=== PATIENT | female | born 1935 | race Caucasian/White ===

== ENCOUNTER 2019-08-14 11:33 | Inpatient (IN) | payer MEDICARE ==
[~2019-08-14] VITALS: Ht 157.5 cm; Wt 69.1 kg
[2019-08-14] MEDS ORDERED: SODIUM CHLORIDE 0.9% 1,000 ML IVB ONE (11:54)
[2019-08-14 12:43] LABS: Basophils # (auto) 0 uL; Basophils % (auto) 0.2 % (0.0-2.0); Eosinophils # (auto) 0 uL; Eosinophils % (auto) 0.4 % (0.0-7.0); Hematocrit 42.4 % (36.0-46.0); Hemoglobin 14.6 g/dL (12.2-16.2); Lymphocytes # (auto) 0.4 uL; Mean Corpuscular Hemoglobin 30.3 pg (28.0-32.0); Mean Corpuscular Hgb Conc. 34.5 g/dL (32.0-36.0); Mean Corpuscular Volume 87.8 fL (80.0-100.0); Monocytes # (auto) 0.3 uL; Monocytes % (auto) 3.4 % (0.0-12.0); Neutrophils # (auto) 8.3 uL; Nucleated Red Blood Cells % 0.1 %; Platelet Count (auto) 263 10^3/uL (140-450); Red Blood Cells 4.83 10^6/uL (4.0-5.20); Red Cell Distribution Width 14.3 % (11.8-14.3)
[2019-08-14 12:44] LABS: Urine Bacteria NONE SEEN /hpf (None Seen); Urine Blood Negative /uL (Negative); Urine Hyaline Cast MANY /lpf (0 - 2); Urine Mucus FEW (None Seen); Urine WBC 14 /hpf (0 - 5)
[2019-08-14 12:57] LABS: Albumin 3.8 g/dL (3.4-5.0); Calcium 8.7 mg/dL (8.5-10.1); Potassium 3.7 mmol/L (3.5-5.1)
[2019-08-14 13:00] LABS: BUN/Creatinine Ratio 10.3; Bilirubin, Total 2.4 mg/dL (0.2-1.0)
[2019-08-14] MEDS ORDERED: cefTRIAXone 1GM/50ML D5W 50 ML IV ONE (13:00)
[2019-08-14] MEDS ORDERED: NITROGLYCERIN 0.4 MG SL TAB SL PRN (14:00)
[2019-08-14] MEDS ORDERED: MORPHINE SULF INJ 2 MG/ML SYRINGE 1ML IV PRN (14:00)
[2019-08-14] MEDS ORDERED: ONDANSETRON HCL 4 MG/2 ML VIAL IV PRN (14:00)
[2019-08-14] MEDS ORDERED: DOCUSATE SOD 100 MG CAP PO PRN (14:00)
[2019-08-14] MEDS ORDERED: HYDROcodone-ACET 5/325MG TAB PO PRN (14:00)
[2019-08-14] MEDS ORDERED: ACETAMINOPHEN 500 MG TAB PO PRN (14:00)
[2019-08-14] MEDS: MORPHINE SULF INJ 2 MG/ML SYRINGE 1ML IV PRN ×2 (14:25→21:48)
[2019-08-14 14:27] LABS: Magnesium 2.1 mg/dL (1.6-2.6)
[2019-08-14 15:52] LABS: INR 1.03 (0.9-1.15); Partial Thromboplastin Time 27.1 sec (23.64-32.05)
--- NOTE | 2019-08-14 15:55 | NUR ---
Telemetry admit from ER TRICIADAVID admitted to Telemetry unit after SBAR received. Patient oriented to Arianna Mobley, RN primary RN, unit, room, bed, and unit policies regarding patient care and visiting hours. Patient now on continuous telemetry monitoring, tele box # 11 and telemetry reading on arrival to unit is NSR. Patient placed on bedside oxygen, weighed by bed scale and encouraged to call if they need something. All questions and concerns addressed, patient verbalized understanding.
[2019-08-14 16:21] VITALS: BP 95/79
--- NOTE | 2019-08-14 19:25 | NUR ---
Endorsed care to NOC RN.
--- NOTE | 2019-08-14 19:30 | NUR ---
Opening Shift Note Assumed care of patient, awake and alert oriented x3, very forgetful easily reoriented. No S/S of distress/SOB noted, pain to right leg to medicate with prn pain medication. Bed is in lowest locked position with bed rails up x2 and call light is within reach of the patient. Instructed on POC and to call for assist PRN. Addendum: 08/14/19 at 7104 by Kym Conner RN RN Bed alarm is on.
[2019-08-14 22:00] VITALS: BP 138/81
--- NOTE | 2019-08-15 00:15 | NUR ---
BUCKS TRACTION: Asked around in search of equipment for bucks traction that is ordered for the patient. None found on unit. Asked charge nurse regarding bucks tractions. Charge nurse to call ER to seek equipment, then powerhouse helper if not available. Waiting for call back.
[2019-08-15] MEDS: MORPHINE SULF INJ 2 MG/ML SYRINGE 1ML IV PRN ×2 (01:53→05:55)
--- NOTE | 2019-08-15 02:27 | NUR ---
Mccurtain traction set up: Mccurtain traction set up for the patient right leg, storage facility housekeeper in with equipment and set up for the patient. Leg stabilized.
[2019-08-15 04:22] VITALS: BP 102/68
--- NOTE | 2019-08-15 05:48 | NUR ---
CHG BATH PERFORMED: CHG BATH PERFORMED. PATIENT TOLERATED WELL. PATIENT CLEANED AND PLACED IN NEW GOWN AND SHEETS. RESTING IN BED WITH BREATHS EVEN AND UNLABORED BED ALARM ARMED.
--- NOTE | 2019-08-15 06:31 | NUR ---
Called Family member Chino regarding consent forms: Called Patients family member Chino, after receiving password for the patient and explained about needing consent forms signed for surgery and need to speak to surgeon regarding consent forms. Chino stated "Ill be there as soon as I can."
--- NOTE | 2019-08-15 06:34 | NUR ---
PACU CALLED REGARDING CARDIAC CLEARANCE: PACU wanted to know if patient is cleared for surgery from cardio. Explained that she is still waiting to be cleared from cardiology before she is able to have surgery. She has yet to be seen by a middle school reading teacher. To make sure cardiology is called in stat.
--- NOTE | 2019-08-15 06:36 | NUR ---
Called in Cardiology consult for stat and made them aware we need it cleared before 9 for surgery.
--- NOTE | 2019-08-15 06:39 | NUR ---
Unable to obtain medication reconciliation. Patient is confused. Patients family members to come in in the AM.
[2019-08-15 06:47] LABS: Basophils # (auto) 0 uL; Basophils % (auto) 0.2 % (0.0-2.0); Eosinophils # (auto) 0 uL; Eosinophils % (auto) 0.3 % (0.0-7.0); Hematocrit 34.1 % (36.0-46.0); Hemoglobin 12.2 g/dL (12.2-16.2); Lymphocytes # (auto) 0.4 uL; Lymphocytes % (auto) 6.2 % (10.0-50.0); Mean Corpuscular Hemoglobin 31.2 pg (28.0-32.0); Mean Corpuscular Hgb Conc. 35.9 g/dL (32.0-36.0); Mean Corpuscular Volume 86.8 fL (80.0-100.0); Monocytes # (auto) 0.5 uL; Monocytes % (auto) 6.4 % (0.0-12.0); Neutrophils # (auto) 6.2 uL; Neutrophils % (auto) 86.9 % (37.0-80.0); Nucleated Red Blood Cells % 0.1 %; Platelet Count (auto) 234 10^3/uL (140-450); Red Blood Cells 3.93 10^6/uL (4.0-5.20); White Blood Cell 7.2 10^3/uL (4.4-10.8)
[2019-08-15 06:48] LABS: Potassium 3.6 mmol/L (3.5-5.1)
[2019-08-15 06:57] LABS: BUN/Creatinine Ratio 11.1; Calcium 8.1 mg/dL (8.5-10.1)
--- NOTE | 2019-08-15 07:00 | NUR ---
Opening Shift Note Received report on the patient. Awake and lying in bed. Patient shows no signs of distress at this time. Discussed plan of care with the patient. Bed in lowest position, side rails up x2, and call light is within reach. Will continue to monitor.
--- NOTE | 2019-08-15 08:37 | NUR ---
Called Dr. Macdonald for a cardio clearance before surgery.
[2019-08-15] MEDS ORDERED: ceFAZolin 1GM/50ML 50 ML IV ONE (08:45)
[2019-08-15 09:07] VITALS: BP 126/56
[2019-08-15] MEDS: FAMOTIDINE 20 MG TAB PO SCH (10:00)
--- NOTE | 2019-08-15 10:56 | NUR ---
OR Patient taken down to OR. No signs of distress at this time
--- NOTE | 2019-08-15 10:57 | NUR ---
Jewelry/Belongings Patients jewelry was given to the before surgery.
[2019-08-15 13:00] VITALS: BP 118/49
[2019-08-15] MEDS ORDERED: PHENYLEPHRINE HCL 10 MG/ML VL IV ONE (13:15)
[2019-08-15] MEDS ORDERED: TETRACAINE 1% INJ 2 ML VIAL IJ ONE (13:16)
[2019-08-15] MEDS ORDERED: MIDAZOLAM HCL 1MG/1ML-2 ML VIAL ONE ×2 (13:24→13:31)
[2019-08-15] MEDS ORDERED: fentaNYL CITRATE 100 MCG/2 ML VL ONE (13:24)
[2019-08-15] MEDS ORDERED: DexAMETHasone SOD PHOS 10MG/1ML VIAL INJ ONE (13:31)
[2019-08-15] MEDS ORDERED: PROPOFOL 10 MG/ML 20 ML IV ONE (13:31)
[2019-08-15] MEDS ORDERED: HYDROmorphone HCL 2 MG/ML VL IV PRN (14:15)
[2019-08-15] MEDS ORDERED: ONDANSETRON HCL 4 MG/2 ML VIAL IV PRN (14:15)
[2019-08-15] MEDS ORDERED: MIDAZOLAM HCL 1MG/1ML-2 ML VIAL IV PRN (14:15)
[2019-08-15] MEDS ORDERED: LABETALOL HCL 5 MG/ML 4ML SYRINGE IV PRN (14:15)
[2019-08-15] MEDS ORDERED: MORPHINE SULFATE 4 MG/ML SYR/VIAL IV PRN (14:15)
[2019-08-15] MEDS ORDERED: ePHEDrine SULFATE 50 MG/ML AMP IV PRN (14:15)
[2019-08-15] MEDS ORDERED: DOCUSATE SOD 100 MG CAP PO PRN (15:00)
[2019-08-15] MEDS ORDERED: HYDROcodone-ACET 5/325MG TAB PO PRN (15:00)
[2019-08-15] MEDS ORDERED: ACETAMINOPHEN 325 MG TAB PO PRN (15:00)
[2019-08-15 16:50] VITALS: BP 121/50
--- NOTE | 2019-08-15 19:40 | NUR ---
Opening Shift Note Assumed care of patient, awake and alert. Patient very forgetful, easily reoriented. No S/S of distress/SOB noted. Bed is in lowest locked position with bed rails up x2 and call light is within reach of the patient bed alarm armed. Nasal cannula applied at 2 liters, continuous pulse ox on. Dressing to right hip is dry and intact. Instructed on POC and to call for assist PRN.
--- NOTE | 2019-08-15 21:00 | NUR ---
Respiratory note: PT PLACED ON CONT. POX AT THIS TIME ORDERED. SPO2 97% ON 1L NC, HR 99, RR 16.
[2019-08-15] MEDS: HYDROmorphone HCL 2 MG/ML VL IV PRN (21:17)
[2019-08-15] MEDS: ceFAZolin 1GM/50ML 50 ML IV SCH (21:20)
[2019-08-15 22:00] VITALS: BP 159/74
--- NOTE | 2019-08-16 00:15 | NUR ---
Patient very confused, ripped out IV: Patient forgot where she was, why she was here. Only alert oriented to self. Did extensive reorienting on patient. Patient verbalized understanding but very repetitive with questions. IV found on the floor pulled out by patient. Assessed site, dry and intact, secured with gauze and coband. Educated and instructed patient not to pull out iv catheter for the use of medications. Patient verbalized understanding. New IV obtained on left wrist 20 Gauge. Patient tolerated well.
[2019-08-16] MEDS: HYDROmorphone HCL 2 MG/ML VL IV PRN ×4 (00:27→21:33)
[2019-08-16 05:00] VITALS: BP 162/65
[2019-08-16] MEDS: ceFAZolin 1GM/50ML 50 ML IV SCH ×2 (06:24→13:49)
[2019-08-16 06:30] VITALS: BP 132/87
--- NOTE | 2019-08-16 06:30 | NUR ---
Blood pressure reassessed: Blood pressure reassessed due to ZIPPER MEASURER vitals being elevated. Blood pressure is 132/87 and pulse is 78 at this time.
--- NOTE | 2019-08-16 06:52 | NUR ---
Closing note and Dressing: Patients dressing to right hip is clean dry and intact. Has not hit 24 hour alfredito for dressing change post surgery. Will endorse dressing change to next nurse. Patient resting in bed with breaths even and unlabored. No s/s of distress SOB or pain noted. On continuous pulse ox and reoriented to time place and situation. Will endorse care to day shift nurse. Addendum: 08/16/19 at 0723 by Kym Conner RN RN INCENTIVE SPIROMETRY AT THE BEDSIDE. EDUCATED PATIENT ABOUT ITS USES TO PREVENT FLUID BUILD UP IN LUNGS. PATIENT VERBALIZED UNDERSTANDING AND DEMONSTRATED USE OF IS.
--- NOTE | 2019-08-16 07:10 | NUR ---
Respiratory note: ROUTINE POX CHECK DONE. HR 68, RR 18, POX 100% ON RA. NO SOB OR DISTRESS NOTED.
--- NOTE | 2019-08-16 08:00 | NUR ---
ASSESSMENT NOTE PATIENT IS RESTING IN BED IN LOW [place] POSITION, ALERT TO SELF, SITUATIONS, CONFUSED ON TIME AND PLACE, VERNON CATHETER TO GRAVITY, RT HIP DRESSING IS DRY AND CLEAN, REPOSITION FROM SIDE TO SIDE WITH PILLOWS, REORIENTED AT ALL TIMES, EDUCATION OF HOW TO USE THE CALL LIGHT GIVEN TO PT, PLACED WITHIN REACH
[2019-08-16] MEDS: FAMOTIDINE 20 MG TAB PO SCH (08:59)
[2019-08-16] MEDS: ENOXAPARIN SOD 40 MG/0.4 ML SYRINGE SC SCH (09:00)
--- NOTE | 2019-08-16 09:00 | NUR ---
PT IS VERY FORGETFUL, REMINDED AT ALL TIMES THAT SHE AT THE HOSPITAL, AND WHY, PT VERBALIS UNDERSTANDING
--- NOTE | 2019-08-16 11:00 | NUR ---
DR GUERRERO AT BED SIDE FOLLOWING UP ON PT, WITH NEW ORDERS
[2019-08-16 11:15] LABS: Basophils # (auto) 0 uL; Basophils % (auto) 0.1 % (0.0-2.0); Eosinophils # (auto) 0 uL; Hematocrit 27.2 % (36.0-46.0); Hemoglobin 9.9 g/dL (12.2-16.2); Lymphocytes # (auto) 0.3 uL; Lymphocytes % (auto) 3.9 % (10.0-50.0); Mean Corpuscular Hemoglobin 31.4 pg (28.0-32.0); Mean Corpuscular Hgb Conc. 36.3 g/dL (32.0-36.0); Mean Corpuscular Volume 86.6 fL (80.0-100.0); Monocytes # (auto) 0.6 uL; Monocytes % (auto) 7.4 % (0.0-12.0); Neutrophils # (auto) 7.7 uL; Neutrophils % (auto) 88.6 % (37.0-80.0); Platelet Count (auto) 211 10^3/uL (140-450); Red Blood Cells 3.14 10^6/uL (4.0-5.20); Red Cell Distribution Width 13.6 % (11.8-14.3); White Blood Cell 8.7 10^3/uL (4.4-10.8)
--- NOTE | 2019-08-16 12:15 | NUR ---
FAMILY PATENT'S SON AND DAUGHTER IN LOW AT BED SIDE
[2019-08-16 13:00] VITALS: BP 119/51
--- NOTE | 2019-08-16 15:14 | NUR ---
DRESSING CHANGE ON THE RT HIP OLD DRESSING REMOVED NO SIGNS OF INFECTION NOTED, STABLES, ARE INTACT, PT TOLERATED WELL
[2019-08-16 17:00] VITALS: BP 123/60
--- NOTE | 2019-08-16 17:06 | NUR ---
PATIENT PULLED OUT THE VERNON CATHETER, NO ACTIVE BLEEDING AT THE URETHRA AREA, PULLED OUT THE TELE BOX, STATED < I WANT TO GO TO BATHROOM>, CONTINUE REORIENTING PT AT ALL TIMES
--- NOTE | 2019-08-16 17:15 | NUR ---
CHIR CHARGE NURSE MADE AWARE PT IS VERY FORGETFULL MAY NEED SITTER, MADE AWARE ABOUT THE VERNON IF WE HAVE TO PUT IT BACK IN , MADE AWARE THAT USUALLY DR GARDNER LIKE THE VERNON BE OUT THE NEXT DAY OF POST OP, VERNON CATHETER WILL STAY OUT
--- NOTE | 2019-08-16 18:31 | NUR ---
PT CONTINUE STABLE, CONTINUE MONITORING
--- NOTE | 2019-08-16 19:20 | NUR ---
Opening Shift Note Assumed care of patient, awake and alert. Patient is orientated x1. No S/S of distress/SOB or pain. Instructed on POC and to call for assist PRN, will continue to monitor for changes Q1hr and PRN.
--- NOTE | 2019-08-16 21:45 | NUR ---
IV insertion IV access obtained, via clean sterile technique by inserting 24 gauge catheter at Left forearm after 1 attempt. IV secured properly. No trauma to site. Patient tolerated well.
[2019-08-16 22:00] VITALS: BP 108/60
--- NOTE | 2019-08-17 00:20 | NUR ---
PT SEEN RESTING IN BED. PT PULLED OFF CONT POX EARLIER. PT PLACED BACK ON CONT POX. PT SPO2 97% ON RA.
[2019-08-17] MEDS: HYDROmorphone HCL 2 MG/ML VL IV PRN ×3 (01:11→21:13)
[2019-08-17 05:00] VITALS: BP 112/77
--- NOTE | 2019-08-17 06:30 | NUR ---
RT NOTE: WENT TO PTS ROOM TO CHECK ON CONT BEDSIDE PULSE OX. PT IS ON 3L NC, SPO2 99%, HR 95, RR 16, WILL CONTINUE TO MONITOR PT.
--- NOTE | 2019-08-17 07:45 | NUR ---
OPENING SHIFT NOTE: Received report from NOC RN, Blel. Assumed care of patient. Patient remains confused to place and situation. Patient denies pain. Bed in lowest position, rails x2 up and call light within reach. Patient with mittens in place due to previously pulling out harris and IV. Updated on plan of care. Will continue to monitor.
[2019-08-17 09:00] VITALS: BP 107/51
--- NOTE | 2019-08-17 09:10 | NUR ---
MD: Dr Danita Trevizo at bedside to see patient. Plan to discharge to SNF tomorrow if ok with Dr Love. Social service consult pending for discharge planning.
[2019-08-17 09:34] LABS: Hematocrit 25.5 % (36.0-46.0); Hemoglobin 9.3 g/dL (12.2-16.2)
[2019-08-17] MEDS: FAMOTIDINE 20 MG TAB PO SCH (10:46)
[2019-08-17] MEDS: ENOXAPARIN SOD 40 MG/0.4 ML SYRINGE SC SCH (10:47)
--- NOTE | 2019-08-17 11:00 | NUR ---
: Dr Love at bedside to see patient. states patient ok from his viewpoint to discharge tomorrow to SNF. is concerned about placement since patient is from [place], [place].
--- NOTE | 2019-08-17 11:55 | NUR ---
Nutrition Assessment Notes please see attached link for complete assessment Est. Needs BW 67 [id number] kcal (23-25 kcal/kgBW), 67-73 gms pro (1.0-1.1 gms/kgBW). Will continue to monitor pertinent labs and reassess nutrient need prn Addendum: 08/17/19 at [address] Amended: Links added.
[2019-08-17 13:00] VITALS: BP 96/64
[2019-08-17 17:00] VITALS: BP 106/53
--- NOTE | 2019-08-17 17:20 | NUR ---
Patient yelling out in room. Found patient lying in bed, linens, thrown off, mittens off, harris catheter wrapped around right arm. Patient yelling at reflection in window, asking if patient is real and that she doesn't feel real. Patient hitting and pinching self saying she doesn't feel real and hitting nurse stating that nurse is real. Notified Ellie, head charger. Patient to be transferred to sitter room 291B.
--- NOTE | 2019-08-17 18:30 | NUR ---
REPORT: Report given to JAMEL Aguero. Endorsed care of patient. Patient transferred to [facility] via bed.
--- NOTE | 2019-08-17 18:35 | NUR ---
Received patient to room 291B. Patient is awake, able to make needs known. Patient has no complaints at this time. Sitter at bedside. Will report to NOC shift.
[2019-08-17 22:00] VITALS: BP 117/57
[2019-08-18 05:00] VITALS: BP 122/54
[2019-08-18 09:00] VITALS: BP 95/43
[2019-08-18 09:30] LABS: Hematocrit 24.7 % (36.0-46.0)
[2019-08-18] MEDS: FAMOTIDINE 20 MG TAB PO SCH (09:58)
[2019-08-18] MEDS: ENOXAPARIN SOD 40 MG/0.4 ML SYRINGE SC SCH (09:58)
--- NOTE | 2019-08-18 09:58 | NUR ---
REPORT FROM JUAN F INITIAL ASSESSMENT. PATIENT IN BED, RESTING, ALERT, ORIENTED X1. COOPERATIVE. PATIENT IS STABLE, UNLABORED BREATHING, DENIES PAIN OR DISCOMFORT. INCISION ON RIGHT HIP COVERED WITH DRESSING, DRY AND INTACT. Addendum: 08/18/19 at 1009 by LEEANNE KING RN REPORT TAKEN AT 0700
--- NOTE | 2019-08-18 10:07 | NUR ---
MEDICATIONS PATIENT WAS OK TAKING PILLS, ABLE TO UNDERSTAND THE PURPOSE OF LOVENOX.
[2019-08-18 13:00] VITALS: BP 119/72
--- NOTE | 2019-08-18 15:43 | NUR ---
DRESSING CHANGED DRESSING CHANGE TO RIGHT HIP. PATIENT HAS ONE LONGER INCISION IN THE TOP OF THE HIP, RIGHT BELOW SHE HAS TWO VERY SMALL ONES. ALL CLEAN AND DRY, NO DRAINAGE, NO ODOR. SKIN IS WARM TO TOUCH, NO SIGNS OF INFECTION. DR GARDNER CAME TO SEE PATIENT; EXPLAINED THAT PT IS C/O SCD'S AND SHE IS TAKING LOVENOX. SCDS REMOVED AND D/C
[2019-08-18 17:00] VITALS: BP 119/78
--- NOTE | 2019-08-18 18:20 | NUR ---
PATIENT IN BED, WITH SITTER IN THE ROOM. PATIENT AWAKE, TALKATIVE, DENIES PAIN OR DISCOMFORT. UNLABORED BREATHING, CALL LIGHT WITH IN REACH, BED IN LOWEST POSITION FOR SAFETY. REINFORCED TO CALL FOR HELP NEEDED. WILL CONTINUE TO MONITOR.
--- NOTE | 2019-08-18 19:45 | NUR ---
Opening Shift Note Received report from day shift nursetyshawn. Assumed care of patient. Patient is asleep. No S/S of distress/SOB or pain. Sitter is at bedside. Bed in low/locked position, bed rails up x2, call light within reach. Will continue to monitor for changes Q1hr and PRN.
--- NOTE | 2019-08-18 19:49 | NUR ---
CARE ENDORSED TO JAMEL EDDY
[2019-08-18 22:00] VITALS: BP 129/78
--- NOTE | 2019-08-18 22:03 | NUR ---
round Pt is awake and alert and orientated x 1 to self. Pt was unaware of being present in the hospital and unaware of the purpose. Pt was orientated.
[2019-08-19 05:00] VITALS: BP 119/72
--- NOTE | 2019-08-19 07:20 | NUR ---
OPENING SHIFT NOTE Assumed care of patient, awake and alert to self and situation. Lo catheter draining to gravity. 2L oxygen applied NC. R Hip dressing C/D/I, no S/S of infection. No S/S of distress/SOB or pain. Call light within reach, bed in lowest position. Instructed on POC and to call for assistance, will continue to monitor for changes.
[2019-08-19 07:22] LABS: Hematocrit 25.1 % (36.0-46.0); Hemoglobin 8.9 g/dL (12.2-16.2)
--- NOTE | 2019-08-19 07:38 | NUR ---
CLOSING NOTES ENDORSED CARE TO DAY SHIFT NURSEHARDIK.
[2019-08-19] MEDS: FAMOTIDINE 20 MG TAB PO SCH (09:46)
[2019-08-19] MEDS: ENOXAPARIN SOD 40 MG/0.4 ML SYRINGE SC SCH (09:46)
--- NOTE | 2019-08-19 10:03 | NUR ---
PT PATIENT REFUSED P.TAleah DYE WAS NOTIFIED. Addendum: 08/19/19 at 1004 by DESMOND POE PTT Amended: Links added.
--- NOTE | 2019-08-19 10:15 | NUR ---
EXPLAIN TO PATIENT IMPORTANCE OF GETTING OOB AND UP IN CHAIR AND START AMBULATING WITH P.PT.PATIENT VERBALIZED UNDERSTANDING.
--- NOTE | 2019-08-19 16:31 | NUR ---
assessment Patient is a 84 year old female who is confused. Per patients daughter in law Mi prior to admission patient lived home with her and functioned with assistance. Per Mi she and patient were at [facility] and patient fell in the store fracturing her hip. Per Mi Patient has a cane for home use. Mi informed me that patient is here visiting from [place]. I informed Mi patient has a ss consult for SNF placement for rehab of femur. Mi agreed to SNF and requested [facility] to be contacted. Md order sent to [facility]. Per Eleanor at [facility] she has accepted patient to room 56A and Dr Orozco is the accepting MD. If discharged after hours call [facility] at [phone] for transport. Mi verbalized understanding and agreed to discharge plan to SNF. Addendum: 08/19/19 at 1638 by Erika WEISS Amended: Links added.
[2019-08-19 17:00] VITALS: BP 119/59
--- NOTE | 2019-08-19 19:05 | NUR ---
OPENING SHIFT NOTE ASSUMED CARE OF PATIENT AWAKE AND ALERT X3. NO S/S OF DISTRESS/SOB. NO COMPLAINTS OF PAIN AT THIS TIME. BED AT LOWEST LOCKED POSITION, [id number], AND CALL LIGHT WITHIN REACH. SITTER AT BEDSIDE. UPDATED PATIENT ON POC AND TO CALL FOR ASSISTANCE PRN. WILL CONTINUE TO MONITOR Q1H AND PRN.
[2019-08-20 06:07] VITALS: BP 113/51
--- NOTE | 2019-08-20 07:15 | NUR ---
Opening Shift Note Assumed care of patient, awake and alert, resting in bed with sitter at bedside. No S/S of distress/SOB or pain. Instructed on POC and to call for assist PRN, will continue to monitor for changes.
[2019-08-20 09:00] VITALS: BP 107/31
--- NOTE | 2019-08-20 09:00 | NUR ---
DRESSING CHANGE Dressing change completed per MD order. Removed old dressing- no saturation, odor, drainage. New dressing is clean, dry, intact. No signs/symptoms of infection noted on or around wound.
--- NOTE | 2019-08-20 10:00 | NUR ---
PHYSICAL THERAPY P.T. AT BEDSIDE ASSISTED PATIENT TO GET OOB PATIENT STAND AND SIT AND DANGLE REFUSED TO AMBULATE
--- NOTE | 2019-08-20 11:30 | NUR ---
MD VISIT DR. Jennifer GUERRERO AT BEDSIDE,EXPLAIN TO PATIENT PLAN OF CARE AND DISCHARGE PLAN TO SNF TODAY.
--- NOTE | 2019-08-20 12:35 | NUR ---
Report and status given to Gabriel MCCULLOUGH for continuation of care
--- NOTE | 2019-08-20 12:40 | NUR ---
Report received from JAMEL Jimenez Assumed care of patient, awake and alert to self and place. No S/S of distress/SOB or pain. Sitter at bedside. Care continues
[2019-08-20 13:00] VITALS: BP 97/36
[2019-08-20] MEDS: FAMOTIDINE 20 MG TAB PO SCH (13:03)
[2019-08-20 14:04] VITALS: BP 97/36
--- NOTE | 2019-08-20 14:15 | NUR ---
re-assessment Patient is now discharged. Paloma MCCULLOUGH has been notified that [facility] will transport will be put on will call due to patients low blood pressure. Once Dr Trevizo gives the okay for discharge call [facility] at [phone] for [facility]. Addendum: 08/20/19 at 1428 by Erika WEISS Amended: Links added.
--- NOTE | 2019-08-20 14:15 | NUR ---
Decrease Blood Pressure Blood pressure noted to be 97/36. Hospitalist paged.
[2019-08-20] MEDS ORDERED: SODIUM CHLORIDE 0.9% 2,000 ML IV ONE (14:30)
--- NOTE | 2019-08-20 14:30 | NUR ---
Hospitalist returned call Received orders from Dr. Trevizo to hold discharge at this time, administer N/S bolus and recheck Blood pressure in 2 hours and notify him. Order entered in [facility]
--- NOTE | 2019-08-20 14:45 | NUR ---
Discharge Canceled As per Dr. Trevizo cancel discharge, recheck CBC in the Am and administer N/S 0.9% at 125 mls/hr. Addendum: 08/20/19 at 1959 by MIO OBRIEN RN Time 1645 and not 1445
[2019-08-20 15:23] LABS: Basophils # (auto) 0 uL; Basophils % (auto) 0.3 % (0.0-2.0); Eosinophils # (auto) 0.1 uL; Lymphocytes # (auto) 0.5 uL; Nucleated Red Blood Cells % 0.1 %; Red Blood Cells 2.71 10^6/uL (4.0-5.20)
[2019-08-20 15:24] LABS: Eosinophils % (auto) 1.8 % (0.0-7.0); Hematocrit 23.9 % (36.0-46.0); Hemoglobin 8.2 g/dL (12.2-16.2); Lymphocytes % (auto) 7.9 % (10.0-50.0); Mean Corpuscular Hemoglobin 30.4 pg (28.0-32.0); Mean Corpuscular Hgb Conc. 34.5 g/dL (32.0-36.0); Mean Corpuscular Volume 88.1 fL (80.0-100.0); Monocytes # (auto) 0.4 uL; Monocytes % (auto) 6.8 % (0.0-12.0); Neutrophils # (auto) 5.4 uL; Neutrophils % (auto) 83.2 % (37.0-80.0); Platelet Count (auto) 258 10^3/uL (140-450); Red Cell Distribution Width 13.9 % (11.8-14.3); White Blood Cell 6.5 10^3/uL (4.4-10.8)
--- NOTE | 2019-08-20 16:00 | NUR ---
Spouse at bedside.
[2019-08-20 16:52] VITALS: BP 122/44
--- NOTE | 2019-08-20 17:35 | NUR ---
Dr. Love notified that discharge is cancelled for today.
[2019-08-20] MEDS: SODIUM CHLORIDE 0.9% 1,000 ML IV SCH (17:48)
--- NOTE | 2019-08-20 19:30 | NUR ---
Opening Shift Note Assumed care of patient, awake and alert. Patient has bouts of confusion, sitter at bedside. No S/S of distress/SOB or pain. Instructed on POC and to call for assist PRN, will continue to monitor for changes Q1hr and PRN.
[2019-08-20] MEDS: HYDROmorphone HCL 2 MG/ML VL IV PRN (19:48)
[2019-08-20 22:00] VITALS: BP 105/92
[2019-08-21] MEDS: HYDROmorphone HCL 2 MG/ML VL IV PRN ×2 (03:29→11:00)
[2019-08-21 05:00] VITALS: BP 109/60
[2019-08-21] MEDS: SODIUM CHLORIDE 0.9% 1,000 ML IV SCH (05:57)
[2019-08-21 06:21] LABS: Basophils # (auto) 0 uL; Eosinophils # (auto) 0.1 uL; Hemoglobin 8.2 g/dL (12.2-16.2); Monocytes # (auto) 0.4 uL; Neutrophils # (auto) 5.1 uL
[2019-08-21 06:23] LABS: Basophils % (auto) 0.4 % (0.0-2.0); Eosinophils % (auto) 1.4 % (0.0-7.0); Hematocrit 22.8 % (36.0-46.0); Lymphocytes # (auto) 0.6 uL; Lymphocytes % (auto) 9.1 % (10.0-50.0); Mean Corpuscular Hgb Conc. 35.9 g/dL (32.0-36.0); Mean Corpuscular Volume 86.3 fL (80.0-100.0); Monocytes % (auto) 6.7 % (0.0-12.0); Neutrophils % (auto) 82.4 % (37.0-80.0); Nucleated Red Blood Cells % 0.1 %; Platelet Count (auto) 263 10^3/uL (140-450); Red Blood Cells 2.64 10^6/uL (4.0-5.20); Red Cell Distribution Width 14.1 % (11.8-14.3); White Blood Cell 6.2 10^3/uL (4.4-10.8)
[2019-08-21 09:00] VITALS: BP 123/45
[2019-08-21] MEDS: FAMOTIDINE 20 MG TAB PO SCH (11:00)
--- NOTE | 2019-08-21 11:00 | NUR ---
PT HAS HAD A FULL BATH, IS BRIGHT AND RESPONSIVE. ASKS ABOUT HER BILL. MEDICATED FOR PAIN PRIOR TO PT SCHEDULED TO WORK WITH HER.
--- NOTE | 2019-08-21 12:08 | NUR ---
REPORT GIVEN TO CIELO AT [facility], TO RECIEVE IN ROOM 56A. SHE ASKS TO LEAVE IV IN PLACE AND JERRY VERNON PRIOR TO TRANSPORT. CALLED [facility]. ETA FOR GARMENT EXAMINER STATED AT 1745.
[2019-08-21 13:00] VITALS: BP 102/46
--- NOTE | 2019-08-21 16:31 | NUR ---
RESTFUL. DENIES PAIN. SAMIRA REPORTS SHE IS TOLERATING MOVING IN BED TO REPOSITION HERSELF FREQUENTLY.
--- NOTE | 2019-08-21 18:05 | NUR ---
VERNON REMOVED REQUESTED BY RECEIVING FACILITY IN REPORT BY TAKING FULL AMOUNT OF VOLUME FROM [place]. PT TOLERATES WELL. IV TO RT FA REMAINS IN PLACE REQUESTED BY RECEIVING FACILITY DURING REPORT. ID BANDS REMOVED. STAFF TAKE CUSTODY OF PT ON PAT. [id number] CALLED TO UPDATED. LISTED BLACK CANE AND DENTURES ALONG WITH CLOTHING ACCOMPANIED PT IN TRANSPORT. AYLIN EXPRESSES APPRECIATION FOR CARE AND UPDATE.
== END 2019-08-21 18:15 | DRG 481 ==
LOC: ER 11:33 → TELE 11:34 → TELE-EAST 16:20 → TELE-WESTW 08-17 18:31
PROVIDERS: ADMIT Nurse Practitioner Acute Care; ATTEND Family Medicine
PROC: 0QS606Z Reposition Right Upper Femur with Intramedullary Internal Fixation Device, Open Approach (ICD-10-PCS; principal; 2019-08-15 13:25)
DX: S72.141A Displaced intertrochanteric fracture of right femur, initial encounter for closed fracture (principal); N30.00 Acute cystitis without hematuria; F03.90 Unspecified dementia, unspecified severity, without behavioral disturbance, psychotic disturbance, mood disturbance, and anxiety; D64.9 Anemia, unspecified; I10 Essential (primary) hypertension; W01.0XXA Fall on same level from slipping, tripping and stumbling without subsequent striking against object, initial encounter; I25.10 Atherosclerotic heart disease of native coronary artery without angina pectoris; Z96.642 Presence of left artificial hip joint; Y92.512 Supermarket, store or market as the place of occurrence of the external cause; Y93.89 Activity, other specified; Y99.8 Other external cause status
CPT/HCPCS: 36415; 51702; 71045; 72192; 73502; 76000; 80048; 80053; 81001; 83735; 84443; 84484; 85014; 85018; 85025; 85610; 85730; 86850; 86900; 86901; 93005; 93306; 94762; 96361; 96365; 96375; 97116; 97163; 97530; A4565; C1713; C1769; G0378; J0690; J0696; J1100; J2250; J2405; J2704

== ENCOUNTER 2019-09-03 22:41 | Emergency (ER) | payer MEDICARE ==
[~2019-09-03] VITALS: Ht 157.5 cm; Wt 59.0 kg
[2019-09-03 23:10] VITALS: BP 108/62
== END 2019-09-04 00:36 | disposition home or self-care (01) ==
LOC: EDBD 22:41 → ER 22:55
DX: F03.90 Unspecified dementia, unspecified severity, without behavioral disturbance, psychotic disturbance, mood disturbance, and anxiety (principal); M25.551 Pain in right hip; M54.5 Low back pain